=== PATIENT | male | born 1960 ===

== ENCOUNTER 2017-10-06 20:20 | Emergency (ER) | payer MEDICAID, OTHER ==
[~2017-10-06] VITALS: Ht 172.7 cm; Wt 68.1 kg
[2017-10-06 21:06] VITALS: Ht 172.7 cm; Wt 68.1 kg
[2017-10-06] MEDS ORDERED: TETRACAINE 0.5% 4 ML OPH RIGHT EYE ONE (22:30)
[2017-10-06] MEDS ORDERED: FLUORESCEIN STRIP RIGHT EYE ONE (22:30)
--- NOTE | 2017-10-07 00:15 | RADRPT ---
PROCEDURE: CT of the orbits without contrast. CLINICAL INDICATION: Injury and pain. TECHNIQUE: CT scan of the orbits was performed on a multi-detector high-resolution CT scanner. Contiguous axial images were obtained without intravenous contrast. Coronal and sagittal reformatte d images were also obtained. Images were reviewed on the PACS workstation. DICOM images are availab le. One or more of the following dose reduction techniques were used: - Automated exposure control. - Adjustment of the mA and/or kV according to patient size. - Use of iterative reconstruction technique. Exam CTD/vol = 29.17 mGy. Total exam DLP = 392.84 mGy-cm. COMPARISON: None. FINDINGS: There is no evidence of fracture. The nasal bones are intact. Bilateral orbital rims, zygoma and z ygomatic arches are intact. The pterygoid plates are intact. Bilateral temporomandibular joints ar e within normal limits. Paranasal sinuses are clear without air fluid levels. There is increase scl erosis of right-sided mastoid air cells. Bilateral orbital globes are symmetric and within normal limits. The extraocular muscles are symmet idris and of normal caliber. Bilateral retrobulbar fat are clear. Bilateral optic nerves and superio r ophthalmic veins are within normal limits. IMPRESSION: No evidence of fracture. Chronic right mastoid disease. .Eddie Matos MD, MD Date Time Electronically viewed and signed by .Eddie Matos MD, MD on 10/07/2017 00:14 .T/
--- NOTE | 2017-10-07 00:47 | ERD ---
ER Documentation Chief Complaint Chief Complaint pt reports a piece of plastic hit him in the r eye HPI This is a 57-year-old male with no significant past medical history who is presenting after trauma to the right eye. The patient was reportedly unwrapping something when an elastic piece of plastic hit him in the right eye. He developed subconjunctival bleeding which is what prompted him to come to the emergency department. The patient does not endorse any ocular pain. He can move his IN all directions without difficulty. He does not endorse any visual changes. He can see normally in that eye. His vision is not blurry or double. The patient does not endorse a headache. He is not lightheaded or dizzy. He does not endorse photophobia or phonophobia. He does not endorse nausea or vomiting. Patient has no other complaints. The patient denies feeling sick recently. The patient denies fever or chills. The patient does not endorse neck or back pain. The patient has had no chest pain or shortness of breath or trouble breathing. The patient denies abdominal pain or changes to bowel movements or urination. The patient has had no focal deficits. The patient has had no weakness or numbness or tingling to the face or extremities. ROS All systems reviewed and are negative except as per history of present illness. Medications Home Meds No Active Prescriptions or Reported Meds Allergies Allergies: Coded Allergies: No Known Allergy (Unverified , 10/07/17) PMhx/Soc Medical and Surgical Hx: pt denies Medical Hx, pt denies Surgical Hx History of Surgery: No Hx Neurological Disorder: No Hx Respiratory Disorders: No Hx Cardiac Disorders: No Hx Psychiatric Problems: No Hx Miscellaneous Medical Probl: No Hx Alcohol Use: No Hx Substance Use: No Hx Tobacco Use: No Smoking Status: Never smoker FmHx Family History: No coronary disease, No diabetes Physical Exam Vitals Vital Signs Date Time Temp Pulse Resp B/P Pulse Ox O2 Delivery O2 Flow Rate FiO2 10/06/17 21:06 98.3 77 16 155/79 97 Physical Exam Const: No apparent distress, well-developed, well-nourished Head: Normocephalic, Atraumatic Eyes: Significant right eye subconjunctival hemorrhage, negative Gerardo testing under [place] lamp. Visual acuity normal. Extraocular movements intact. Pupils equal, round and reactive to light ENT: Normal External Ears, Nose and Mouth. Neck: Full range of motion. No meningismus. Resp: Clear to auscultation bilaterally, No wheezes, rales or rhonchi Cardio: Regular rate and rhythm. No murmurs, rubs or gallops Abd: Soft, non tender, non distended. Normal bowel sounds Skin: No petechiae or rashes Back: No midline tenderness. No CVA tenderness Ext: No cyanosis, or edema Neur: Awake and alert, oriented 4. Cranial nerves intact. No facial droop. Normal strength, sensation and coordination. Psych: Normal Mood and Affect Results 24 hrs Current Medications Medications (Trade) Dose Ordered Sig/Alexa Route PRN Reason Start Time Stop Time Status Last Admin Dose Admin Tetracaine HCl (Tetracaine 0.5% Steri-Unit Rmaandeep) 1 drop ONCE ONCE RIGHT EYE 10/06/17 22:30 10/06/17 22:31 DC 10/06/17 22:52 Fluorescein Sodium (Vgiin-A-Nlyhn) 1 strip ONCE ONCE RIGHT EYE 10/06/17 22:30 10/06/17 22:31 DC 10/06/17 22:51 Procedures/MDM MDM The patient's presentation warrants further investigation. She has evidence of a subconjunctival hemorrhage. There is no evidence of a corneal abrasion. The patient has a negative Gerardo test, and I have low suspicion for globe rupture. The patient's visual acuity is normal. The patient's extraocular movements are intact and I do not suspect entrapment. The patient does not have any step- offs or deformities and I have low suspicion for fracture. CT of the orbits will be performed to evaluate for any evidence of foreign body. I do not see any obvious foreign body under the [place] lamp. IMAGING CT Orbit FINDINGS: There is no evidence of fracture. The nasal bones are intact. Bilateral orbital rims, zygoma and zygomatic arches are intact. The pterygoid plates are intact. Bilateral temporomandibular joints are within normal limits. Paranasal sinuses are clear without air fluid levels. There is increase sclerosis of right-sided mastoid air cells. Bilateral orbital globes are symmetric and within normal limits. The extraocular muscles are symmetric and of normal caliber. Bilateral retrobulbar fat are clear. Bilateral optic nerves and superior ophthalmic veins are within normal limits. IMPRESSION: No evidence of fracture. Chronic right mastoid disease. Electronically viewed and signed by .Eddie Matos MD, MD on 10/07/2017 00:14 TREATMENT/DISPOSITION Patient has a subconjunctival hemorrhage. His workup is otherwise unremarkable. I have low suspicion for globe rupture. The patient does not have evidence of a corneal abrasion. The patient has no evidence for orbital fracture or entrapment. The patient's visual acuity is normal on my assessment. The patient does not have any evidence of infection or conjunctivitis. I do not feel that he requires antibiotics. I suspect this to be self-limited and resolve on its own. The patient needs to follow-up with his primary care physician in 2-3 days for reevaluation. At this time, I do not feel that the patient requires ophthalmologic evaluation. However, the patient's primary doctor can coordinate ophthalmologic care if needed after reevaluation. At this time, I feel that the patient stable for discharge. The patient will need follow-up with his primary care physician in 2-3 days. The patient will be given strict precautions with which to return to the emergency department. The patient's blood pressure was elevated at greater than 120/80 while in the emergency department. The patient was otherwise stable with no evidence of hypertensive urgency or emergency or end organ damage. The patient does not require admission for blood pressure control. I have discussed with the patient the risks of hypertension. I have advised the patient to follow up with the primary care physician for outpatient monitoring and treatment for hypertension in 2-3 days. I have instructed the patient to return to the ER for any new or worsening symptoms including chest pain, shortness of breath, headache, blurred vision, confusion, nausea, vomiting or LOC. Disclaimer: Inadvertent spelling and grammatical errors are likely due to EHR/ dictation software use and do not reflect on the overall quality of patient care. Note that the electronic time recorded on this note does not necessarily reflect the actual time of the patient encounter. Departure Diagnosis: Primary Impression: Subconjunctival hemorrhage of right eye Condition: PABLO Prajapati MD Oct 07, 2017 00:47
[2017-10-07 00:57] VITALS: BP 140/86; PULSE 78; RESP 17; TEMP 97.9
== END 2017-10-07 00:57 | disposition home or self-care (01) ==
LOC: E/R 20:20
DX: H11.31 Conjunctival hemorrhage, right eye (principal); R40.2142 Coma scale, eyes open, spontaneous, at arrival to emergency department; R40.2252 Coma scale, best verbal response, oriented, at arrival to emergency department; R40.2362 Coma scale, best motor response, obeys commands, at arrival to emergency department
CPT/HCPCS: 70480; Z7502; Z7610